=== PATIENT | female | born 1945 | race Caucasian/White ===

== ENCOUNTER 2020-03-28 09:19 | Emergency (ER) | payer OTHER, MEDICARE ==
[~2020-03-28] VITALS: Ht 162.6 cm; Wt 85.0 kg
[2020-03-28] MEDS ORDERED: METFORMIN500 M2 PO (09:49)
[2020-03-28] MEDS ORDERED: ASPIRIN81 MG PO (09:50)
[2020-03-28] MEDS ORDERED: METOPROL TAR25 MG PO (09:51)
[2020-03-28 09:54] LABS: HEMATOCRIT 36.3 % (37.0-47.0); HEMOGLOBIN 12.2 g/dl (12.0-16.0); IMMATURE GRANULOCYTES 0.4 % (0.0-5.0); MEAN CELL VOLUME 84.2 fL CALC (80.0-100.0); MEAN CORPUSCULAR HGB 28.3 pG CALC (26.0-32.0); MEAN CORPUSCULAR HGB CONC 33.6 g/dL CAL (32.0-36.0); NEUT# 4.85 thou/uL (2.00-7.15); RED BLOOD COUNT 4.31 mill/uL (4.20-5.60)
[2020-03-28] MEDS ORDERED: LEVOTHYROXIN75 MCG PO (09:58)
[2020-03-28] MEDS ORDERED: ZOLPIDEM5 M1 PO (10:00)
[2020-03-28 10:11] LABS: ALBUMIN 3.7 g/dL (3.2-5.0); ALKALINE PHOSPHATASE 44 u/l (38-126); ANION GAP 16 (6-22 (CALC)); BILIRUBIN, TOTAL 1.2 mg/dL (0.0-1.4); BUN 21 mg/dL (8-23); BUN/CREATININE RATIO 22 (12-20 (CALC)); CARBON DIOXIDE 18 mmol/l (22-30); CHLORIDE 103 mmol/l (95-108); GFR 54 ML/MIN (>=60 (CALC)); GFR FOR AFR.AMER. > 60 ML/MIN (>=60 (CALC)); LIPASE 377 u/l (23-300); POTASSIUM 4.7 mmol/l (3.5-5.1); SGOT/AST 23 u/l (9-36); SODIUM 132 mmol/l (137-146)
[2020-03-28 11:50] VITALS: BP 121/59
== END 2020-03-28 11:50 | disposition home or self-care (01) | DRG 604 ==
LOC: ED 09:19
PROVIDERS: Family Medicine
DX: S30.1XXA Contusion of abdominal wall, initial encounter (principal); S20.212A Contusion of left front wall of thorax, initial encounter; S80.12XA Contusion of left lower leg, initial encounter; S80.11XA Contusion of right lower leg, initial encounter; M54.2 Cervicalgia; U07.1 COVID-19; J12.89 Other viral pneumonia; I10 Essential (primary) hypertension; V59.40XA Driver of pick-up truck or van injured in collision with unspecified motor vehicles in traffic accident, initial encounter
CPT/HCPCS: Q9967